=== PATIENT | male | born 1935 ===

== ENCOUNTER → 2019-10-02 | Outpatient (CLI) | payer OTHER ==
[~2019-10-02] MED LIST: ALBU90OI INH; Prednisone20 MG PO; [UNRECOGNIZED DRUG - OTHER]
[2019-10-02 12:46] LABS: Hematocrit 35.8 % (37.0-53.0); Hemoglobin 11.9 g/dL (13.5-17.5); Mean Corpuscular HGB 30.1 pg (26.0-34.0); Mean Corpuscular HGB Conc 33.2 g/dL (31.5-36.5); Mean Corpuscular Volume 90 fL (80-100); Mean Platelet Volume 10.1 fL (9.1-12.4); Platelet Count 235 K/mm3 (150-400); RDW Coefficient Variation 16.6 % (11.7-14.2); RDW Standard Deviation 53.9 fL (35.1-46.3); Red Blood Cell Count 3.96 M/mm3 (4.30-5.90); White Blood Cell Count 6.63 K/mm3 (4.00-11.30)
[2019-10-02 12:59] LABS: Alanine Aminotransfer (ALT/SGP 23 U/L (12-78); Albumin, Blood 2.5 g/dL (3.4-5.0); Albumin/Globulin Ratio 0.5 (0.8-1.8); Alk Phos 62 U/L (40-126); Anion Gap 7 mmol/L (6-16); Aspartate Aminotrans (AST/SGOT 17 U/L (12-37); Bilirubin, Total 0.4 mg/dL (0.1-1.0); Blood Urea Nitrogen 24 mg/dL (8-24); Bun/Creatinine Ratio 21.6 (12.0-20.0); CO2, Blood 29 mmol/L (21-32); Chloride, Blood 105 mmol/L (98-108); Creatinine, Blood 1.11 mg/dL (0.60-1.20); Globulin, Blood 5.1 g/dL (2.2-4.0); Glomerular Filtration Rate >60 (60-); Glucose, Blood 112 mg/dL (70-99); Potassium, Blood 3.6 mmol/L (3.5-5.5); Sodium, Blood 141 mmol/L (136-145); Total Protein, Blood 7.6 g/dL (6.4-8.2)
[2019-10-02 13:15] LABS: BAND PERCENT MAN 8 % (0-8); BASOPHILS ABSOLUTE MAN 0.06 K/mm3 (0.00-0.23); BASOPHILS PERCENT MAN 1 % (0-2); EOSINOPHILS ABSOLUTE MAN 0.06 K/mm3 (0.00-0.68); EOSINOPHILS PERCENT MAN 1 % (0-6); LYMPHOCYTES ABSOLUTE MAN 2.12 K/mm3 (0.84-5.20); LYMPHOCYTES PERCENT MAN 32 % (21-46); METAMYELOCYTE ABSOLUTE MAN 0.06 K/mm3 (0.00-0.00); METAMYELOCYTE PERCENT MAN 1 % (0-0); MONOCYTES ABSOLUTE MAN 0.59 K/mm3 (0.16-1.47); MONOCYTES PERCENT MAN 9 % (4-13); NEUTROPHILS ABSOLUTE MAN 3.71 K/mm3 (1.96-9.15); SEG NEUTROPHILS PERCENT MAN 48 % (41-73); TOTAL CELLS COUNTED 100
== END ==
LOC: LAB EV 12:43 → LAB SHORT 12:43
PROVIDERS: Emergency Medicine
DX: R19.7 Diarrhea, unspecified (principal)
CPT/HCPCS: 80053; 85025

== ENCOUNTER → 2019-10-05 | Outpatient (CLI) | payer OTHER ==
[2019-10-06 19:40] LABS: Adenovirus F 40/41 Not Detected (NOT DETECT); Astrovirus Not Detected (NOT DETECT); Campylobacter Sp Not Detected (NOT DETECT); Cryptosporidium Not Detected (NOT DETECT); Cyclospora Cayetanensis Not Detected (NOT DETECT); E. Coli O157 Not Detected (NOT DETECT); Entamoeba Histolytica Not Detected (NOT DETECT); Enteroaggregative E. coli-EAEC Not Detected (NOT DETECT); Enteropathogenic E. coli-EPEC Not Detected (NOT DETECT); Enterotoxigenic E. coli-ETEC Not Detected (NOT DETECT); Giardia Lamblia Not Detected (NOT DETECT); Norovirus GI/GII Not Detected (NOT DETECT); Plesiomonas Shigelloides Not Detected (NOT DETECT); Rotavirus A Not Detected (NOT DETECT); Salmonella Sp Not Detected (NOT DETECT); Sapovirus Not Detected (NOT DETECT); Shiga Toxin-prod E. coli-STEC Not Detected (NOT DETECT); Shigella/Enteroin E. coli-EIEC Not Detected (NOT DETECT); Vibrio Cholerae Not Detected (NOT DETECT); Vibrio Sp Not Detected (NOT DETECT); Yersinia Enterocolitica Not Detected (NOT DETECT)
== END ==
LOC: LAB EV 12:30 → LAB SHORT 12:30
PROVIDERS: Emergency Medicine
DX: R19.7 Diarrhea, unspecified (principal)
CPT/HCPCS: 0097U

== ENCOUNTER → 2020-01-14 | Outpatient (CLI) | payer MEDICARE, OTHER ==
[2020-01-14 17:56] LABS: Source, Urine Clean Catch
[2020-01-14 18:03] LABS: BASOPHILS ABSOLUTE AUTO 0.02 K/mm3 (0.00-0.23); BASOPHILS PERCENT AUTO 0 % (0-2); EOSINOPHILS ABSOLUTE AUTO 0.07 K/mm3 (0.00-0.68); EOSINOPHILS PERCENT AUTO 2 % (0-6); Hematocrit 31.8 % (37.0-53.0); Hemoglobin 10.1 g/dL (13.5-17.5); IMMATURE GRAN ABSOLUTE AUTO 0.06 K/mm3 (0.00-0.10); IMMATURE GRAN PERCENT AUTO 1 % (0-1); LYMPHOCYTES ABSOLUTE AUTO 1.37 K/mm3 (0.84-5.20); LYMPHOCYTES PERCENT AUTO 29 % (21-46); MONOCYTES ABSOLUTE AUTO 0.67 K/mm3 (0.16-1.47); MONOCYTES PERCENT AUTO 14 % (4-13); Mean Corpuscular HGB 29.2 pg (26.0-34.0); Mean Corpuscular HGB Conc 31.8 g/dL (31.5-36.5); Mean Corpuscular Volume 92 fL (80-100); Mean Platelet Volume 9.8 fL (9.1-12.4); NEUTROPHILS ABSOLUTE AUTO 2.48 K/mm3 (1.96-9.15); NEUTROPHILS PERCENT AUTO 53 % (41-73); Platelet Count 180 K/mm3 (150-400); RDW Coefficient Variation 16.6 % (11.7-14.2); Red Blood Cell Count 3.46 M/mm3 (4.30-5.90); White Blood Cell Count 4.67 K/mm3 (4.00-11.30)
[2020-01-14 18:22] LABS: Albumin, Blood 2.7 g/dL (3.4-5.0); Albumin/Globulin Ratio 0.4 (0.8-1.8); Bilirubin, Total 0.3 mg/dL (0.1-1.0); Bun/Creatinine Ratio 26.4 (12.0-20.0); Calcium, Blood 8.7 mg/dL (8.5-10.1); Creatinine, Blood 1.74 mg/dL (0.60-1.20); Globulin, Blood 6.7 g/dL (2.2-4.0); Potassium, Blood 4.7 mmol/L (3.5-5.5); Total Protein, Blood 9.4 g/dL (6.4-8.2)
[2020-01-14 18:25] LABS: Appearance, Urine Clear (Clear); Bilirubin, Urine 1+ (Neg); Blood, Urine 2+ (Neg); Color, Urine Yellow (P-Yellow); Glucose Qualitative, Urine Neg (Normal); Ketones, Urine Neg (Neg); Leukocyte Esterase, Urine Neg (Neg); Nitrite, Urine Neg (Neg); Protein, Urine 1+ (Neg); Urobilinogen, Urine NORM (Normal)
[2020-01-14 18:26] LABS: Bacteria Few /hpf; Red Blood Cells, Urine 25-50 /hpf (0-2); Squamous Epithelial Cells Few /hpf (Few)
== END | disposition home or self-care (01) ==
LOC: LAB EV 17:54 → LAB SHORT 17:54
PROVIDERS: Physician Assistant
DX: Z12.5 Encounter for screening for malignant neoplasm of prostate (principal); R41.0 Disorientation, unspecified
CPT/HCPCS: 36415; 80053; 81001; 85025; G0103

== ENCOUNTER → 2020-01-26 | Outpatient (CLI) | payer MEDICARE, OTHER ==
[2020-01-26 09:06] LABS: Source, Urine Clean Catch
[2020-01-26 12:49] LABS: Bilirubin, Urine Neg (Neg); Blood, Urine 5+ (Neg); Glucose Qualitative, Urine Neg (Neg); Ketones, Urine Neg (Neg); Leukocyte Esterase, Urine Neg (Neg); Nitrite, Urine Neg (Neg); Protein, Urine 2+ (Neg); Urobilinogen, Urine NORM (Normal)
[2020-01-26 12:59] LABS: Appearance, Urine Clear (Clear); Color, Urine Yellow (P-Yellow); Red Blood Cells, Urine 25-50 /hpf (0-2)
[2020-01-26 13:00] LABS: Bacteria Rare /hpf; Hyaline Casts 0-2 /lpf (0-2); Squamous Epithelial Cells Not Seen /hpf (Few)
== END ==
LOC: LAB SHORT 09:03 → LAB 09:03
PROVIDERS: Physician Assistant
DX: R41.0 Disorientation, unspecified (principal)
CPT/HCPCS: 81001; 87086

== ENCOUNTER 2020-04-21 19:17 | Inpatient (IN) | payer MEDICARE, OTHER ==
[~2020-04-21] VITALS: Ht 172.7 cm; Wt 58.3 kg
[2020-04-21 19:38] LABS: BASOPHILS ABSOLUTE AUTO 0.03 K/mm3 (0.00-0.23); BASOPHILS PERCENT AUTO 1 % (0-2); EOSINOPHILS ABSOLUTE AUTO 0.13 K/mm3 (0.00-0.68); EOSINOPHILS PERCENT AUTO 2 % (0-6); Hematocrit 27.4 % (37.0-53.0); Hemoglobin 8.8 g/dL (13.5-17.5); IMMATURE GRAN ABSOLUTE AUTO 0.03 K/mm3 (0.00-0.10); IMMATURE GRAN PERCENT AUTO 1 % (0-1); LYMPHOCYTES ABSOLUTE AUTO 1.77 K/mm3 (0.84-5.20); LYMPHOCYTES PERCENT AUTO 28 % (21-46); MONOCYTES ABSOLUTE AUTO 0.53 K/mm3 (0.16-1.47); MONOCYTES PERCENT AUTO 9 % (4-13); Mean Corpuscular HGB 28.5 pg (26.0-34.0); Mean Corpuscular HGB Conc 32.1 g/dL (31.5-36.5); Mean Corpuscular Volume 89 fL (80-100); Mean Platelet Volume 10.9 fL (9.1-12.4); NEUTROPHILS ABSOLUTE AUTO 3.74 K/mm3 (1.96-9.15); NEUTROPHILS PERCENT AUTO 60 % (41-73); Platelet Count 175 K/mm3 (150-400); RDW Coefficient Variation 17.6 % (11.7-14.2); RDW Standard Deviation 55.8 fL (35.1-46.3); Red Blood Cell Count 3.09 M/mm3 (4.30-5.90); White Blood Cell Count 6.23 K/mm3 (4.00-11.30)
[2020-04-21 19:50] LABS: Albumin, Blood 2.4 g/dL (3.4-5.0); Albumin/Globulin Ratio 0.4 (0.8-1.8); Bilirubin, Total 0.5 mg/dL (0.1-1.0); Calcium, Blood 8.7 mg/dL (8.5-10.1); Creatinine, Blood 2.88 mg/dL (0.60-1.20); Globulin, Blood 6.3 g/dL (2.2-4.0); Potassium, Blood 5.1 mmol/L (3.5-5.5); Total Protein, Blood 8.7 g/dL (6.4-8.2)
[2020-04-21 20:41] LABS: International Normalized Ratio 1.21; Prothrombin Time Results 12.8 Sec (9.7-11.5)
[2020-04-21] MEDS ORDERED: Carbidopa-Levo1 EAC1 PO (20:55)
[2020-04-21] MEDS ORDERED: Amantadine100 M1 PO (20:55)
[2020-04-21] MEDS ORDERED: ATOR40TA PO (20:55)
[2020-04-21 22:18] LABS: Percent Saturation 21.2 % (20.0-50.0)
--- NOTE | 2020-04-21 23:12 | NUR ---
PT ARRIVED FROM ER VIA STRETCHER; SLIDER SHEET USED TO MOVE PT TO BED; LOCAL OPERATOR PHONE BROUGHT TO ROOM TO ASSIST W/ COMMUNICATION, EXPLAIN MEDICATIONS AND ORIENT PT TO UNIT; HEP GTT STARTED; LOADING PLAVIX ADMINISTERED; CALL LIGHT IN REACH; BED IN LOWEST POSITION; WILL CONTINUE TO MONITOR CLOSELY
[2020-04-22 03:04] LABS: BASOPHILS ABSOLUTE AUTO 0.03 K/mm3 (0.00-0.23); BASOPHILS PERCENT AUTO 1 % (0-2); EOSINOPHILS ABSOLUTE AUTO 0.09 K/mm3 (0.00-0.68); EOSINOPHILS PERCENT AUTO 2 % (0-6); Hematocrit 29.3 % (37.0-53.0); Hemoglobin 9.4 g/dL (13.5-17.5); IMMATURE GRAN ABSOLUTE AUTO 0.03 K/mm3 (0.00-0.10); IMMATURE GRAN PERCENT AUTO 1 % (0-1); LYMPHOCYTES ABSOLUTE AUTO 1.31 K/mm3 (0.84-5.20); LYMPHOCYTES PERCENT AUTO 32 % (21-46); MONOCYTES ABSOLUTE AUTO 0.39 K/mm3 (0.16-1.47); MONOCYTES PERCENT AUTO 9 % (4-13); Mean Corpuscular HGB 28.7 pg (26.0-34.0); Mean Corpuscular HGB Conc 32.1 g/dL (31.5-36.5); Mean Corpuscular Volume 89 fL (80-100); Mean Platelet Volume 11.2 fL (9.1-12.4); NEUTROPHILS ABSOLUTE AUTO 2.29 K/mm3 (1.96-9.15); NEUTROPHILS PERCENT AUTO 55 % (41-73); Platelet Count 159 K/mm3 (150-400); RDW Coefficient Variation 17.4 % (11.7-14.2); RDW Standard Deviation 56.4 fL (35.1-46.3); Red Blood Cell Count 3.28 M/mm3 (4.30-5.90); White Blood Cell Count 4.14 K/mm3 (4.00-11.30)
[2020-04-22 03:19] LABS: Bun/Creatinine Ratio 24.4 (12.0-20.0); Calcium, Blood 8.2 mg/dL (8.5-10.1); Creatinine, Blood 2.91 mg/dL (0.60-1.20); Potassium, Blood 4.5 mmol/L (3.5-5.5)
--- NOTE | 2020-04-22 05:27 | NUR ---
SHIFT SUMMARY PT ALERT; CALM & COMPLIANT W/ CARE; VSS; HYDRALYZINE GIVEN 1X THIS SHIFT; O2 SATS >93 ON RA; LUNG SOUNDS COARSE W/ EXP WHEEZES; NO EDEMA NOTED; NO ACUTE STRESS NOTED; INCONTINENT W/ ATTENDS IN PLACE; HEP GTT INFUSING; CALL LIGHT IN REACH; BED IN LOWEST POSITION; WILL CONTINUE TO MONITOR CLOSELY UNTIL HAND OFF TO DAY SHIFT RN.
--- NOTE | 2020-04-22 13:30 | NUR ---
echocardiogram complete
[2020-04-23 04:08] LABS: BASOPHILS ABSOLUTE AUTO 0.01 K/mm3 (0.00-0.23); BASOPHILS PERCENT AUTO 0 % (0-2); EOSINOPHILS ABSOLUTE AUTO 0.17 K/mm3 (0.00-0.68); EOSINOPHILS PERCENT AUTO 4 % (0-6); Hematocrit 27.3 % (37.0-53.0); Hemoglobin 8.7 g/dL (13.5-17.5); IMMATURE GRAN ABSOLUTE AUTO 0.03 K/mm3 (0.00-0.10); IMMATURE GRAN PERCENT AUTO 1 % (0-1); LYMPHOCYTES ABSOLUTE AUTO 1.18 K/mm3 (0.84-5.20); LYMPHOCYTES PERCENT AUTO 28 % (21-46); MONOCYTES ABSOLUTE AUTO 0.39 K/mm3 (0.16-1.47); MONOCYTES PERCENT AUTO 9 % (4-13); Mean Corpuscular HGB 28.2 pg (26.0-34.0); Mean Corpuscular HGB Conc 31.9 g/dL (31.5-36.5); Mean Corpuscular Volume 88 fL (80-100); Mean Platelet Volume 10.9 fL (9.1-12.4); NEUTROPHILS ABSOLUTE AUTO 2.47 K/mm3 (1.96-9.15); NEUTROPHILS PERCENT AUTO 58 % (41-73); Platelet Count 164 K/mm3 (150-400); RDW Coefficient Variation 17.2 % (11.7-14.2); RDW Standard Deviation 54.2 fL (35.1-46.3); Red Blood Cell Count 3.09 M/mm3 (4.30-5.90); White Blood Cell Count 4.25 K/mm3 (4.00-11.30)
[2020-04-23 04:24] LABS: Albumin, Blood 2.2 g/dL (3.4-5.0); Anion Gap 10 mmol/L (6-16); Blood Urea Nitrogen 72 mg/dL (8-24); CO2, Blood 19 mmol/L (21-32); Calcium, Blood 8.1 mg/dL (8.5-10.1); Chloride, Blood 112 mmol/L (98-108); Creatinine, Blood 2.77 mg/dL (0.60-1.20); Glomerular Filtration Rate 23 (60-); Glucose, Blood 108 mg/dL (70-99); Magnesium, Blood 2.3 mg/dL (1.6-2.4); Phosphorus, Blood 5.2 mg/dL (2.5-4.9); Potassium, Blood 4.3 mmol/L (3.5-5.5); Sodium, Blood 141 mmol/L (136-145)
--- NOTE | 2020-04-23 07:37 | NUR ---
SHIFT SUMMARY PT A&O X 2; ASSISTED W/ CALLING FAMILY AT START OF SHIFT AND AGAIN THIS AM FOR PT COMFORT AND REORIENTING; BP ELEVATED THIS AM, PRN HYDRALAZINE IV 1X THIS AM; DENIES CHEST PAIN; O2 SATS > 94 ON RA; TO SEE PT VALERIO @ 2330; CARDIOLOGY CONSULT CALLED IN TO ANSWERING SERVICE; CALLED BACK STATING HE WOULD CONSULT; PT INCONTINENT W/ ATTENDS IN PLACE; CALL LIGHT IN REACH; BED IN LOWEST POSITION W/ BED ALARM ON; REPORT GIVEN TO DAY SHIFT RN.
--- NOTE | 2020-04-23 18:26 | NUR ---
SHIFT SUMMARY NO ACUTE CHANGES NOTED THROUGH THE DAY. PT HAS BEEN AWAKE AND ALERT, WITH SMALL PERIODS OF CONFUSION, HE WAS REORIENTED PRN VIA PHONE CALLS TO FAMILY AND USE OF THE SUPERVISORY CBP OFFICER PHONE. 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 PT REMAINS ON RA, BED ALARM IN PLACE FOR SAFETY. WCTM.
[2020-04-23 19:30] LABS: Stool Occult Blood Guaiac 1 Neg (Neg)
[2020-04-23 20:27] LABS: Adenovirus F 40/41 Not Detected (NOT DETECT); Astrovirus Not Detected (NOT DETECT); Campylobacter Sp Not Detected (NOT DETECT); Cryptosporidium Not Detected (NOT DETECT); Cyclospora Cayetanensis Not Detected (NOT DETECT); E. Coli O157 Not Detected (NOT DETECT); Entamoeba Histolytica Not Detected (NOT DETECT); Enteroaggregative E. coli-EAEC Not Detected (NOT DETECT); Enteropathogenic E. coli-EPEC Not Detected (NOT DETECT); Enterotoxigenic E. coli-ETEC Not Detected (NOT DETECT); Giardia Lamblia Not Detected (NOT DETECT); Norovirus GI/GII Not Detected (NOT DETECT); Plesiomonas Shigelloides Not Detected (NOT DETECT); Rotavirus A Not Detected (NOT DETECT); Salmonella Sp Not Detected (NOT DETECT); Sapovirus Not Detected (NOT DETECT); Shiga Toxin-prod E. coli-STEC Not Detected (NOT DETECT); Shigella/Enteroin E. coli-EIEC Not Detected (NOT DETECT); Vibrio Cholerae Not Detected (NOT DETECT); Vibrio Sp Not Detected (NOT DETECT); Yersinia Enterocolitica Not Detected (NOT DETECT)
[2020-04-24 03:41] LABS: BASOPHILS ABSOLUTE AUTO 0.01 K/mm3 (0.00-0.23); BASOPHILS PERCENT AUTO 0 % (0-2); EOSINOPHILS ABSOLUTE AUTO 0.14 K/mm3 (0.00-0.68); EOSINOPHILS PERCENT AUTO 3 % (0-6); Hematocrit 27.6 % (37.0-53.0); Hemoglobin 9.1 g/dL (13.5-17.5); IMMATURE GRAN ABSOLUTE AUTO 0.05 K/mm3 (0.00-0.10); IMMATURE GRAN PERCENT AUTO 1 % (0-1); LYMPHOCYTES ABSOLUTE AUTO 1.16 K/mm3 (0.84-5.20); LYMPHOCYTES PERCENT AUTO 26 % (21-46); MONOCYTES ABSOLUTE AUTO 0.41 K/mm3 (0.16-1.47); MONOCYTES PERCENT AUTO 9 % (4-13); Mean Corpuscular HGB 29.3 pg (26.0-34.0); Mean Corpuscular Volume 89 fL (80-100); Mean Platelet Volume 11.3 fL (9.1-12.4); NEUTROPHILS ABSOLUTE AUTO 2.69 K/mm3 (1.96-9.15); NEUTROPHILS PERCENT AUTO 60 % (41-73); Platelet Count 170 K/mm3 (150-400); RDW Coefficient Variation 17.2 % (11.7-14.2); RDW Standard Deviation 53.2 fL (35.1-46.3); Red Blood Cell Count 3.11 M/mm3 (4.30-5.90); White Blood Cell Count 4.46 K/mm3 (4.00-11.30)
[2020-04-24 04:02] LABS: Albumin, Blood 2.1 g/dL (3.4-5.0); Anion Gap 8 mmol/L (6-16); Blood Urea Nitrogen 62 mg/dL (8-24); Bun/Creatinine Ratio 27.4 (12.0-20.0); CO2, Blood 22 mmol/L (21-32); Calcium, Blood 7.9 mg/dL (8.5-10.1); Chloride, Blood 111 mmol/L (98-108); Creatinine, Blood 2.26 mg/dL (0.60-1.20); Glomerular Filtration Rate 29 (60-); Glucose, Blood 97 mg/dL (70-99); Magnesium, Blood 2.1 mg/dL (1.6-2.4); Phosphorus, Blood 4.5 mg/dL (2.5-4.9); Potassium, Blood 4.1 mmol/L (3.5-5.5); Sodium, Blood 141 mmol/L (136-145)
--- NOTE | 2020-04-24 05:32 | NUR ---
SHIFT SUMMARY PT A&O X 2; PT APPEARS IMPROVED FROM PREVIOUS SHIFT; DENIES PAIN / CP; DIASTOLIC BP ELEVATED; O2 SATS >93 ON RA; NO EDEMA NOTED; BNP IS SLOWLY TRENDING DOWN, AM LABS BNP 1266; CREATININE 2.26; CDIFF NEGATIVE; PHONE OFFERED TO TALK TO FAMILY; INCONTINENT W/ ATTENDS IN PLACE; CALL LIGHT IN REACH; BED IN LOWEST POSITION W/ BED ALARM ON; WILL CONTINUE TO MONITOR CLOSELY UNTIL HAND OFF TO DAY SHIFT RN.
--- NOTE | 2020-04-24 13:03 | NUR ---
TRANSFER PT IS BEING TRANSFERRED TO ROOM 302. HE IS CURRENTLY AWAKE,ALERT AND ORIENTED. PT'S GRAND DAUGHTER WAS IN THE ROOM AND WAS ABLE TO TRANSLATE TRANSFER PROCESS TO THE PT AT THIS TIME, PT STATED UNDERSTANDING AND HAS NO QUESTIONS. PT WAS EDUCATED ON USE OF THE CALL LIGHT & SAFETY MEASURES BEING THE SAME FOR EACH FLOOR. REPORT WAS CALLED TO NAINA MILLER, BELONGINGS GATHERED AND SENT WITH PT. PT TRANSPORTED VIA W/C. RESP UNLABORED, VSS.
--- NOTE | 2020-04-24 13:56 | NUR ---
PT ARRIVED TO THE MEDICQAL FLOOR VIA WHEELCHAIR ALERT APPEARS TO BE BREATHING EASILY ON RA, PT REPORTED PAIN VIA LEAD CARE MANAGER, HEAD ACHE AND SHOULDER PAIN, PT WAS ORIENTED TO THE CALL SYSTEM, CALL LIGHT IN REACH
--- NOTE | 2020-04-24 16:54 | NUR ---
PT IS ALERT, PER HX HAS MILD DEMENTIA, THE PT IS GERMAN SPEAKING AND DOES NOT SPEAK NEPALI, AN INTERPRETOR PHONE IS PLACED AT THE BEDSIDE FOR COMMUNICATION, THE PT IS UP WITH 1 PERSON ASSIST, THE PT APPEARS TO BE BREATHING EASILY ON RA AT THIS TIME, THE PT WAS MEDICATED FOR HEADACHE AND RIGHT SHOULDER PAIN WITH TYLENOL X1 TODAY, CALL LIGHT WITHIN REACH WILL CONTINUE TO MONITOR AND ASSESS FOR CHANGES
--- NOTE | 2020-04-25 04:19 | NUR ---
SHIFT SUMMARY ASSUMED CARE OF PT AT 1900. UNABLE TO ASSESS PT ORIENTATION DUE TO LACK OF BULGARIAN SPEAKING. HEART SOUNDS REGULAR, TELE SHOWS SINUS WITH FIRST DEGREE BLOCK AND PVC'S @ 79. LUNG SOUNDS ARE CLEAR WITH WHEEZES AT THE BASES. ABD SOFT, PT IS HAVING LOOSE STOOLS. PT HAS BEEN INCONTNENT T/O THE NIGHT. NO ACUTE CHANGES DURING THE NIGHT. PT SLEPT T/O THE NIGHT. CALL LIGHT IN REACH, BED IN LOWEST POSITION, WILL CONTINUE TO MONITOR UNTIL DAYSHIFT NURSE ARRIVES.
[2020-04-25 08:50] LABS: Albumin, Blood 2.2 g/dL (3.4-5.0); Anion Gap 4 mmol/L (6-16); Blood Urea Nitrogen 62 mg/dL (8-24); CO2, Blood 27 mmol/L (21-32); Calcium, Blood 8.1 mg/dL (8.5-10.1); Chloride, Blood 108 mmol/L (98-108); Creatinine, Blood 2.14 mg/dL (0.60-1.20); Glomerular Filtration Rate 31 (60-); Glucose, Blood 96 mg/dL (70-99); Phosphorus, Blood 3.6 mg/dL (2.5-4.9); Potassium, Blood 4.4 mmol/L (3.5-5.5); Sodium, Blood 139 mmol/L (136-145)
--- NOTE | 2020-04-25 11:56 | NUR ---
CHEST PAIN PT REPORTED CHEST PAIN THIS AM MORE INTENSE WITH COUGH, THE SPEECH THERAPIST WAS CONCERNED WITH THE PTS CHANGES IN SWALLOWING AND THE COUGH, A CALL WAS MADE TO DR. DAVID CASTORENA, ORDER WAS GIVEN TO GIVE THE PT A NITRO, NITRO WAS GIVEN THE PT HAD NO RELIEF, AN EKG WAS TAKEN, DR. CASTORENA REVIEWED THE EKG, DR. CASTORENA SPOKE TO THE PT AND TO THE PTS [facility], THE PT IS NOW UP IN THE CHAIR AT THE BEDSIDE, PT WAS GIVEN NORCO FOR PAIN, AND WAS INSTRUCTED TO EAT SLOWLY AND WAIT BETWEEN BITES IF COUGHING BY THE GREEN HOUSE MANAGER, THE PT VS ARE WNL, PT APPEARS TO BE BREATHING EASILY ON RA
[2020-04-25 13:07] LABS: A/G RATIO 0.5 (0.7-1.7); ALBUMIN 2.5 g/dL (2.9-4.4); ALPHA-1-GLOBULIN 0.2 g/dL (0.0-0.4); ALPHA-2-GLOBULIN 0.5 g/dL (0.4-1.0); BETA GLOBULIN 0.9 g/dL (0.7-1.3); GAMMA GLOBULIN 3.2 g/dL (0.4-1.8); GLOBULIN, TOTAL 4.9 g/dL (2.2-3.9); M-SPIKE Comment: g/dL (Not Observed); PROTEIN, TOTAL, SERUM 7.4 g/dL (6.0-8.5)
--- NOTE | 2020-04-25 16:00 | NUR ---
PT IS ALERT, THE PT IS REPORTED TO HAVE SEVERE DEMENTIA, THE PT APPEARS TO BE BREATHING EASILY ON RA AT REST, TODAY THE PT C/O MORSE AND CHEST PAIN, DR. DAVID LOPEZ SEEN THE PT AND NEW ORDERS WERE GIVEN AND ADMINISTERED, AFTER GETTING UP INTO THE CHAIR THE PT WAS ASKED BY HIS GRANDAUGHTER IF HE WAS STILL HAVING PAIN AND HE REPORTED NO PAIN, THE PT DID HOWEVER LATER HAVE PAIN WHILE COUGHING, THE PT IS UP IN THE CHAIR AT THIS TIME, CALL LIGHT IN REACH THE PT APPEARS TO BE BREATHING EASILY ON RA, WILL CONTINUE TO MONITOR AND ASSESS FOR CHANGES
[2020-04-26 04:31] LABS: BASOPHILS ABSOLUTE AUTO 0.02 K/mm3 (0.00-0.23); BASOPHILS PERCENT AUTO 1 % (0-2); EOSINOPHILS ABSOLUTE AUTO 0.16 K/mm3 (0.00-0.68); EOSINOPHILS PERCENT AUTO 4 % (0-6); Hemoglobin 8.7 g/dL (13.5-17.5); IMMATURE GRAN ABSOLUTE AUTO 0.04 K/mm3 (0.00-0.10); IMMATURE GRAN PERCENT AUTO 1 % (0-1); LYMPHOCYTES ABSOLUTE AUTO 1.51 K/mm3 (0.84-5.20); LYMPHOCYTES PERCENT AUTO 35 % (21-46); MONOCYTES ABSOLUTE AUTO 0.43 K/mm3 (0.16-1.47); MONOCYTES PERCENT AUTO 10 % (4-13); Mean Corpuscular HGB 28.2 pg (26.0-34.0); Mean Corpuscular HGB Conc 31.1 g/dL (31.5-36.5); Mean Corpuscular Volume 91 fL (80-100); Mean Platelet Volume 11.4 fL (9.1-12.4); NEUTROPHILS ABSOLUTE AUTO 2.15 K/mm3 (1.96-9.15); NEUTROPHILS PERCENT AUTO 50 % (41-73); Platelet Count 163 K/mm3 (150-400); RDW Coefficient Variation 18.3 % (11.7-14.2); RDW Standard Deviation 56.3 fL (35.1-46.3); Red Blood Cell Count 3.09 M/mm3 (4.30-5.90); White Blood Cell Count 4.31 K/mm3 (4.00-11.30)
[2020-04-26 04:47] LABS: Albumin, Blood 2.1 g/dL (3.4-5.0); Anion Gap 5 mmol/L (6-16); Blood Urea Nitrogen 56 mg/dL (8-24); Bun/Creatinine Ratio 27.7 (12.0-20.0); CO2, Blood 26 mmol/L (21-32); Calcium, Blood 7.8 mg/dL (8.5-10.1); Chloride, Blood 105 mmol/L (98-108); Creatinine, Blood 2.02 mg/dL (0.60-1.20); Glomerular Filtration Rate 33 (60-); Glucose, Blood 101 mg/dL (70-99); Phosphorus, Blood 3.7 mg/dL (2.5-4.9); Potassium, Blood 4.3 mmol/L (3.5-5.5); Sodium, Blood 136 mmol/L (136-145)
--- NOTE | 2020-04-26 04:49 | NUR ---
SHIFT SUMMARY PT HAS SLEPT MOST OF THE NIGHT WITHOUT DISTRESS. INTERPRETOR LINE HAS BEEN USED THIS SHIFT AND PT HAS DENIED NEEDS WHEN ASKED. PT REPORTS SOME CHEST PAIN AT THE BEGINNING OF THE SHIFT BUT STATES "VERY LITTLE". HE WAS UNABLE TO GIVE ME A PAIN RATING. CHEST PAIN IS UNCHANGED FROM DAYSHIFT. AND DR. LOPEZ IS ALREADY AWARE OF PT COMPLAINTS OF CHEST PAIN, AND TESTING HAS BEEN DONE. PT FEEL ASLEEP SHORTLY AFTER MY SHIFT ASSESSMENT AND DENIED FURTHER NEEDS FOR THE DURATION OF SHIFT. VITALS HAVE BEEN STABLE. NO N/V, SKIN IS WARM AND DRY, RESP E/U. PT A/O TO SELF AND WAS WAS UNABLE TO ANSWER MY QUESTIONS REGARDING ORIENTATION. PT PLESANT AND COOPERATIVE WITH CARE. NO ACUTE CHANGES, BED IN LOWEST POSITION, CALL LIGHT WITHIN REACH. WILL CONTINUE TO MONITOR AND REPORT ONCOMING RN.
[2020-04-26] MEDS ORDERED: ACET325 PO (14:23)
[2020-04-26] MEDS ORDERED: Aspir 8181 MG PO (14:24)
[2020-04-26] MEDS ORDERED: ATOR20 PO (14:24)
[2020-04-26] MEDS ORDERED: Carbidopa-Levo1 EAC1 PO (14:25)
[2020-04-26] MEDS ORDERED: CARV3.125 PO (14:26)
[2020-04-26] MEDS ORDERED: FURO20 PO (14:27)
[2020-04-26] MEDS ORDERED: HYDRA25 PO (14:28)
[2020-04-26] MEDS ORDERED: Isosorbide Mono30 MG PO (14:29)
[2020-04-26] MEDS ORDERED: Hydrocodone-Ap1 EA23 PO (14:33)
--- NOTE | 2020-04-26 15:00 | NUR ---
DISCHARGE SUMMARY PT DISCHARGED TO HOME WITH HOME HEALTH. PT'S SON EDUCATED ON DISCHARGE INSTRUCTIONS SINCE PATIENT IS UNABLE TO USE TELEGRAPH REPEATER INSTALLER PHONE. ALL QUESTIONS ANSWERED. IV DC'D, BELONGINGS RETURNED. FAMILY AGREES TO FOLLOW UP WITH [facility] AND TAKE MEDICATIONS PRESCRIBED.
--- NOTE | 2020-04-26 16:19 | NUR ---
review of needs and polst with [facility] caret[facility]. will get polst completed.
== END 2020-04-26 14:40 | disposition home health service (06) | DRG 291 ==
LOC: ER 19:17 → PCU 19:18 → ER 19:18 → PCU 22:00 → MEDS 04-24 13:37
PROVIDERS: Internal Medicine Gastroenterology; Internal Medicine Nephrology; Nurse Practitioner Acute Care; Student in an Organized Health Care Education/Training Program; ADMIT Internal Medicine
DX: I13.0 Hypertensive heart and chronic kidney disease with heart failure and stage 1 through stage 4 chronic kidney disease, or unspecified chronic kidney disease (principal); I50.21 Acute systolic (congestive) heart failure; N17.9 Acute kidney failure, unspecified; E87.2 Acidosis; I42.0 Dilated cardiomyopathy; G20 Parkinson's disease; F02.80 Dementia in other diseases classified elsewhere, unspecified severity, without behavioral disturbance, psychotic disturbance, mood disturbance, and anxiety; R13.10 Dysphagia, unspecified; I25.10 Atherosclerotic heart disease of native coronary artery without angina pectoris; Z95.5 Presence of coronary angioplasty implant and graft; D64.9 Anemia, unspecified; Z66 Do not resuscitate; I27.20 Pulmonary hypertension, unspecified; I34.0 Nonrheumatic mitral (valve) insufficiency
CPT/HCPCS: 0097U; 36415; 71045; 76770; 80048; 80053; 80069; 82270; 82374; 82607; 82728; 82746; 83540; 83550; 83735; 83880; 84165; 84484; 85018; 85025; 85610; 85730; 92526; 92610; 93005; 93010; 93306; 96374; 96375; 96376; 97110; 97116; 97163; 99285-25; A9270; A9270-GY; G0378; J0360; J0881; J1644; J1650; J1940; J7042; J7070